=== PATIENT | male | born 1970 | race Caucasian/White ===

== ENCOUNTER 2019-02-03 07:51 | Day surgery (SDC) | payer BC, OTHER, MEDICAID ==
[~2019-02-03] VITALS: Ht 182.9 cm; Wt 106.1 kg
[~2019-02-03 07:51] MED LIST: NS 1,000 ML IV SCH; OMEP40CA97 PO
[2019-02-03] MEDS ORDERED: PROPOFOL 200 MG/20 ML VIAL As Ordered ONE (07:52)
[2019-02-03] MEDS ORDERED: LIDOCAINE 2% INJ 100 MG/5 ML SDV (FOR ANES.) As Ordered ONE (07:52)
--- NOTE | 2019-02-03 09:35 | ROOR ---
Patient Name: Ambrocio Arevalo Procedure Date: 02/03/2019 9:12 AM Date of : 1970 Age: 48 Room: [facility] Gender: Male Note Status: Finalized Procedure: Total Colonoscopy to Cecum Indications: High risk colon cancer surveillance: Personal history of colonic polyps, Last colonoscopy: 2011 Providers: Jairo Colvin MD Referring MD: DANIEL MARROQUIN MD Requesting Provider: Medicines: Monitored Anesthesia Care Complications: No immediate complications. Procedure: Pre-Anesthesia Assessment: - The heart rate, respiratory rate, oxygen saturations, blood pressure, adequacy of pulmonary ventilation, and response to care were monitored throughout the procedure. The Colonoscope was introduced through the anus and advanced to the cecum, identified by appendiceal orifice and ileocecal valve. The colonoscopy was performed without difficulty. The patient tolerated the procedure well. The quality of the bowel preparation was excellent. Findings: The perianal and digital rectal examinations were normal. Non-bleeding internal hemorrhoids were found during retroflexion. The hemorrhoids were small and Grade I (internal hemorrhoids that do not prolapse). Copious quantities of stool was found in the entire colon, precluding visualization. The exam was otherwise normal throughout the examined colon. Impression: - Non-bleeding internal hemorrhoids. - Stool in the entire examined colon. - No specimens collected. - The exam was otherwise normal to the cecum. Recommendation: - Patient has a contact number available for emergencies. The signs and symptoms of potential delayed complications were discussed with the patient. Return to normal activities tomorrow. Written discharge instructions were provided to the patient. - High fiber diet. - Discharge patient to home. - Continue present medications. - Repeat colonoscopy in 1 year because the bowel preparation was poor. - Return to referring physician. - The findings and recommendations were discussed with the patient's family. Jairo Colvin MD Jairo Colvin MD 02/03/2019 9:35:41 AM Electronically signed by Jairo Colvin MD Number of Addenda: 0 Note Initiated On: 02/03/2019 9:12 AM Estimated Blood Loss: Estimated blood loss: none.
[2019-02-03 10:00] VITALS: BP 122/89
== END 2019-02-03 10:09 | disposition home or self-care (01) ==
LOC: M OPP 07:51
PROVIDERS: ATTEND Internal Medicine Gastroenterology
DX: Z12.11 Encounter for screening for malignant neoplasm of colon (principal); Z86.010 Personal history of colon polyps; K64.0 First degree hemorrhoids